=== PATIENT | female | born 1945 | race Caucasian/White ===

== ENCOUNTER → 2016-07-02 | Outpatient (CLI) | payer MEDICARE, BC ==
[~2016-07-02] MED LIST: ANTIVERT 25MG25 MG PO; ASPI325T6 PO; ASPIRIN 81M81 MG/TA2 PO; CELEBREX 200MG200 MG PO; FISH OIL1000 MG PO; FOSAMAX 70MG TA70 MG PO; NORCO 325 MG-51 TAB PO; RESTASIS 60VL; TYLENOL 500MG500 MG PO; VITAMIN D1000 IU PO; VITAMIN E 400 U4001 PO
== END ==
LOC: MC.RAD 11:13
DX: Z12.31 Encounter for screening mammogram for malignant neoplasm of breast (principal)

== ENCOUNTER → 2017-09-04 | Outpatient (CLI) | payer MEDICARE, BC | LOC: MC.RAD 09:48 | DX: Z12.31 Encounter for screening mammogram for malignant neoplasm of breast (principal) ==

== ENCOUNTER → 2018-09-11 | Outpatient (CLI) | payer MEDICARE, BC | LOC: MC.RAD 13:12 | DX: Z12.31 Encounter for screening mammogram for malignant neoplasm of breast (principal); Z78.0 Asymptomatic menopausal state ==

== ENCOUNTER → 2019-11-19 | Outpatient (CLI) | payer MEDICARE, BC | LOC: MC.RAD 09:42 | DX: Z12.31 Encounter for screening mammogram for malignant neoplasm of breast (principal) ==

== ENCOUNTER 2020-04-27 15:00 | Outpatient (RCR) | payer MEDICARE, BC ==
[2020-04-20 15:26] VITALS: BP 128/74; PULSE 93; TEMP 98.4
[2020-04-24 15:26] VITALS: BP 132/76; PULSE 93; TEMP 99
--- NOTE | 2020-04-24 16:30 | NUR ---
IV DC'd, bleeding controlled at site. Pt ambulates from dept with steady gait.
[~2020-04-27] VITALS: Ht 154.9 cm; Wt 54.4 kg
[~2020-04-27 15:00] MED LIST changes: +EPA FISH OIL1 SGL PO; +LIPITOR 10MG10 MG PO; +ONE-A-DAY ESSE1 EACH PO; +OSCAL 500 TAB500 MG PO; +PROTONIX 40MG T40 MG PO; +STOOL SOFTENER100 M2 PO; +VITAMINE200 PO
== END 2020-04-27 16:29 ==
LOC: EUO 15:00
DX: D62 Acute posthemorrhagic anemia (principal); Z96.659 Presence of unspecified artificial knee joint
CPT/HCPCS: J2916

== ENCOUNTER 2020-06-14 08:26 | Day surgery (SDC) | payer MEDICARE, BC ==
[~2020-06-14] VITALS: Ht 154.9 cm; Wt 56.3 kg
[2020-06-14 09:04] VITALS: BP 128/67; PULSE 75; TEMP 97.9
[2020-06-14] MEDS ORDERED: ONE-A-DAY ESSE1 EACH PO (09:35)
[2020-06-14] MEDS ORDERED: VITAMINE200 PO (09:36)
[2020-06-14] MEDS ORDERED: CEPHALEXIN500 M1 PO (09:38)
[2020-06-14 10:20] VITALS: BP 130/77; PULSE 16; TEMP 98.4
--- NOTE | 2020-06-14 10:20 | NUR ---
Pt to [facility] via cart from ENDO. Pt awake and alert. Pt ambulates to recliner with stand by assistance. Water given per pt request. Will continue to monitor. Pt denies pain or nausea. into speak with pt. Call light within reach.
[2020-06-14 10:35] VITALS: BP 135/74; PULSE 75
--- NOTE | 2020-06-14 10:35 | NUR ---
Pt tolerating po water without difficulties. Pt denies needs. Call light within reach.
[2020-06-14 10:50] VITALS: BP 138/72; PULSE 68
--- NOTE | 2020-06-14 10:50 | NUR ---
Discharge instructions reviewed. Pt voices understanding. IV site discontinued with all parts intact. Pt up to dress. Call light within reach.
--- NOTE | 2020-06-14 11:00 | NUR ---
Pt escorted to private car via wheel chair. Pt accompanied home by her .
== END 2020-06-14 11:00 | disposition home or self-care (01) ==
LOC: SDCO 08:26
DX: D50.0 Iron deficiency anemia secondary to blood loss (chronic) (principal); K44.9 Diaphragmatic hernia without obstruction or gangrene; K31.89 Other diseases of stomach and duodenum; Z87.11 Personal history of peptic ulcer disease; Z88.5 Allergy status to narcotic agent
CPT/HCPCS: J2704; J7120

== ENCOUNTER → 2020-11-20 | Outpatient (CLI) | payer MEDICARE, BC ==
[~2020-11-20] MED LIST changes: +CEPHALEXIN500 M1 PO
== END ==
LOC: MC.RAD 12:57
DX: Z12.31 Encounter for screening mammogram for malignant neoplasm of breast (principal); Z78.0 Asymptomatic menopausal state

== ENCOUNTER → 2022-01-04 | Outpatient (CLI) | payer MEDICARE, BC | LOC: MC.RAD 13:16 | DX: Z12.31 Encounter for screening mammogram for malignant neoplasm of breast (principal) ==

== ENCOUNTER → 2024-02-16 | Outpatient (CLI) | payer MEDICARE, BC ==
[~2024-02-16] MED LIST changes: +Iohexol 300 - 100 ML VIAL IV ONE; +NS 100 ML IV SCH
== END ==
LOC: COL.RAD 13:53
DX: K22.9 Disease of esophagus, unspecified (principal); R59.9 Enlarged lymph nodes, unspecified; R29.898 Other symptoms and signs involving the musculoskeletal system; M79.604 Pain in right leg; M79.605 Pain in left leg
CPT/HCPCS: Q9967

== ENCOUNTER 2024-02-20 05:28 | Day surgery (SDC) | payer MEDICARE, BC ==
[~2024-02-20] VITALS: Ht 154.9 cm; Wt 57.0 kg
[~2024-02-20 05:28] MED LIST changes: -Iohexol 300 - 100 ML VIAL IV ONE; +LR 1,000 ML IV SCH; -NS 100 ML IV SCH
[2024-02-20 05:56] VITALS: BP 144/76; PULSE 72; TEMP 97.3
[2024-02-20] MEDS ORDERED: Ondansetron 4 MG/2 ML VIAL IV PRN (06:00)
[2024-02-20] MEDS ORDERED: PRESERVISION1 SGL PO (06:02)
[2024-02-20] MEDS ORDERED: RESTASIS0.05% OP (06:03)
--- NOTE | 2024-02-20 06:21 | NUR ---
The patient ambulated back to [facility] independently using a steady gait and appeared to tolerate the activity well. Vital signs obtained. Consent signed. 20G IV started in right hand with one stick, LR Infusing without difficulty. Assessment completed. Home medications reconcilled. brought back to be at her bedside. Warm blankets provided. Denies any further needs at this time.
[2024-02-20 07:30] VITALS: BP 127/57; PULSE 68; TEMP 96.6
[2024-02-20 07:45] VITALS: BP 144/79; PULSE 64
[2024-02-20 08:00] VITALS: BP 151/70; PULSE 64
--- NOTE | 2024-02-20 08:10 | NUR ---
Pt returned to GI bay 4 post procedure at 0730 . A&O. VSS-see flowsheet. Tolerated oral intake. Dr Walsh in to visit post procedure. IV removed, pressure dressing applied. Discharge teaching completed, pt verbalized understanding. After pt dressing, pt taken via wheelchair to private vehicle with dc home with spouse driving. Pt left with dc packet/teaching.
== END 2024-02-20 08:10 | disposition home or self-care (01) ==
LOC: SDCO 05:28
DX: K29.70 Gastritis, unspecified, without bleeding (principal); K20.90 Esophagitis, unspecified without bleeding; K44.9 Diaphragmatic hernia without obstruction or gangrene; R59.0 Localized enlarged lymph nodes; Z86.010 Personal history of colon polyps
CPT/HCPCS: J2704; J7120

== ENCOUNTER → 2024-03-03 | Outpatient (CLI) | payer MEDICARE, BC ==
[~2024-03-03] MED LIST changes: +Iohexol 300 - 100 ML VIAL IV ONE; -LR 1,000 ML IV SCH; +NS 100 ML IV SCH; +PRESERVISION1 SGL PO; +RESTASIS0.05% OP
== END ==
LOC: COL.RAD 10:09
DX: K76.9 Liver disease, unspecified (principal); K44.9 Diaphragmatic hernia without obstruction or gangrene
CPT/HCPCS: Q9967

== ENCOUNTER → 2024-03-31 | Outpatient (CLI) | payer MEDICARE, BC ==
[~2024-03-31] VITALS: Ht 154.9 cm; Wt 57.1 kg
[~2024-03-31] MED LIST changes: -Iohexol 300 - 100 ML VIAL IV ONE; -NS 100 ML IV SCH
[2024-03-31 09:04] VITALS: BP 168/84; PULSE 80; TEMP 98.3
[2024-03-31 10:13] VITALS: BP 180/81; PULSE 75
--- NOTE | 2024-03-31 10:39 | NUR ---
PATIENT HAS COMPLETED HER RECOVERY. PATIENT DENIES BEING IN ANY PAIN. BANDAGE REMAINS CLEAN, DRY, AND INTACT. PATIENT DRESSED HERSELF. ESCORTED PATIENT WITH ALL OF HER PERSONAL ITEMS TO THE PATIENT ENTRANCE VIA WHEELCHAIR. PATIENT ABLE TO GET INTO THE FRONT PASSENGER SEAT OF HER RIDE WITHOUT ISSUE OR ASSISTANCE. ALL NEEDS MET.
== END ==
LOC: COL.RAD 08:41
DX: R59.1 Generalized enlarged lymph nodes (principal)